=== PATIENT | male | born 1980 | race Caucasian/White ===

== ENCOUNTER 2024-12-08 13:08 | Emergency (ER) | payer OTHER, SELFPAY ==
--- NOTE | ~2024-12-08 | XR_ITS ---
CLINICAL HISTORY: cp Two views of the chest. COMPARISON: None FINDINGS: Normal heart and mediastinal contours. No consolidation. No pleural effusion or pneumothorax. No acute fracture. IMPRESSION: 1. No consolidation. This document has been electronically signed by: Scar Marin MD on 12/08/2024 14:02:25
--- NOTE | 2024-12-08 13:11 | ECG_ITS ---
Test Reason : CP Blood Pressure : */* mmHG Vent. Rate : 110 BPM Atrial Rate : 110 BPM P-R Int : 142 ms QRS Dur : 88 ms QT Int : 342 ms P-R-T Axes : 50 17 44 degrees QTcB Int : 462 ms Sinus tachycardia Otherwise normal ECG No previous ECGs available Referred By: Mechelle Corona Electronically Signed By: RICCARDO ANTOINE MD
--- NOTE | 2024-12-08 13:23 | ED_ITS ---
HPI - Chest Pain General Chief Complaint: Chest Pain Stated Complaint: chest pain Time Seen by Provider: 12/08/24 16:24 History of Present Illness ED Provider: Ayush THOMPSON narrative: The patient is a 44-year-old male who reports a history of drug use in the past including cocaine. He denies any significant past medical history although he says he has not seen a doctor in years. He says that yesterday of the day before he developed pain in his left lower chest. He says the pain is not severe, a 3 or a 4/10. It feels like a knot in his chest he says. It is not worse when he breathes or changes position. He denies any injury or straining or significant exercise recently. He can not think of anything that might have provoked any pain in his chest. He has had no significant cough recently although he reports that he had had a lot of coughing a month ago and was ultimately prescribed azithromycin at an urgent care. His symptoms improved after that. He has had no pain or swelling in his legs. No fever, sweats, chills. No abdominal pain, nausea, vomiting. The pain is not affected by eating. He does not feel short of breath. He has a smoking history. Currently he uses Gwendolyn nicotine pouches. He does not have any family history of early coronary disease as far as he knows. His father by drowning in his 20s. His mother has a lot. Related Data Allergies Allergy/AdvReac Type Severity Reaction Status Date / Time No Known Allergies Allergy Verified 12/08/24 13:25 Review of Systems 2 Review of Systems: Yes all other systems are reviewed and are negative [facility] Social History Social History Smoked in Last 30 Days: No Use of substances other than those prescribed or required for medical reasons: Yes Substance Use Type: Crack/Cocaine Substance Use Frequency: Occasionally Advance Directives: No Advance Directives Information Provided: Yes Physical Exam 2 Vital Signs: Vital Signs: Last Vital Signs Temp 98.5 F 12/08/24 18:00 Pulse 100 12/08/24 18:00 Resp 18 12/08/24 18:00 BP 168/87 H 12/08/24 18:00 Pulse Ox 96 12/08/24 18:00 O2 Del Method Room Air 12/08/24 18:00 BMI result Body Mass Index 31.7 Const: Other: The patient is a robust and muscular looking 44-year-old. He does not appear in acute distress. Orientation/consciousness: patient oriented x3 HEENT: Head: Yes normal to inspection Face and sinus: Yes normal facial exam Mouth: Normal oral and palatal mucosa present and moist mucous membranes Eyes: General: appearance normal, both eyes and all related structures E yelids: Yes eyelids normal Conjunctivae: conjunctivae normal Sclerae: s clerae normal Pupils: Equal, round and reactive pupils present EOM: EOMs intact bilaterally Neck: Neck: Yes normal visual inspection, Yes full ROM and Yes no JVD Chest: Other: The patient indicates an area of pain on the left lower anterior chest wall. This is a few cm lateral to the sternum a few cm above the costal margin and a few cm below the nipple. I do not reproduce the patient's pain with the palpation. No crepitus or subcutaneous emphysema or other abnormality with palpation or inspection. Resp: Effort & Inspection: normal respiratory effort Auscultation: clear to auscultation bilaterally Cardio: Rate: regular rate Rhythm: regular rhythm Heart sounds: S1 normal heart sound present and S2 normal heart sound present GI: Other: The abdomen is soft and nontender. No left upper quadrant tenderness. Skin: Other: The skin is dry and unremarkable. General skin exam: no rashes or lesions noted Neuro: General: patient oriented x3, tone normal, moves all extremities, no focal motor deficits and CN's II-XI intact bilaterally Cranial nerves: Yes Equal, round and reactive pupils present Extrem: Other: No peripheral edema. No calf swelling or tenderness. No asymmetry Course Course Course Narrative: This is a Rapid Medical Exam performed in triage by Mechelle Corona PA-C. Full HPI, ROS and PE to be performed by primary ED provider. 44 yo M presenting to the ED c/o chest pain since last night around 1800 s/p smoking marijuana. Does admit to cocaine use. Denies SOB, N/V, lightheadedness, dizziness PE: NAD, Nontoxic appearing, ambulating w/steady gait Plan: EKG, Labs, CXR, SARs, Tox screen Medical Decision Making Medical Decision Making MDM Narrative: The patient is a 44-year-old male who presents with chest pain that started yesterday. There were no inciting factors. The pain has been fairly constant. It is not pleuritic. He has a history of cocaine use in the past although he is testing negative for cocaine today. He does not think that he has any family history of early coronary disease. He uses Gwendolyn nicotine pouches. The patient does not appear unwell and he does not seem in significant distress or discomfort. EKGs unremarkable. No old EKGs for comparison. Troponins are flat. D-dimer is normal. Chest x-ray is normal. Pain does not seem to be typical chest wall pain. The pain is not reproducible on palpation and does not seem to be worse with movements. It seems to be fairly constant. I do not appreciate any associated gastrointestinal symptoms and there was no abdominal tenderness. My suspicion for a dangerous process at this point given his negative workup is quite low. He will be reassured and discharged. He should get a primary care doctor. he should return if worse. Lab Data 12/08/24 13:38 12/08/24 13:38 Labs: Lab Results 12/08/24 12/08/24 Range/Units 13:38 17:02 WBC 10.3 (4.8-10.8) X10*3/uL RBC 5.58 (4.60-5.80) X10*6/uL Hgb 16.5 (14.0-18.0) g/dl Hct 45.4 (42.0-52.0) % MCV 81.4 (80.0-98.0) fL MCH 29.6 (27.0-33.0) pg MCHC 36.3 H (31.0-36.0) g/dl RDW 12.3 (11.0-16.0) % Plt Count 249 (160-400) X10*3/uL MPV 8.7 L (9.4-12.4) fL Immature Gran % (Auto) 0.4 (0.0-0.4) % Neut % (Auto) 63.2 (45-73) % Lymph % (Auto) 25.5 (20-40) % [place] % (Auto) 8.9 (2-11) % Eos % (Auto) 1.3 (0-4) % Baso % (Auto) 0.7 (0-2) % Lymph # (Auto) 2.6 (1.2-4.9) X10*3/uL [place] # (Auto) 0.9 (0.1-1.2) X10*3/uL Eos # (Auto) 0.1 (0.0-0.4) X10*3/uL Baso # (Auto) 0.1 (0.0-0.2) X10*3/uL Abs Immat Gran (auto) 0.04 H (0.00-0.03) X10*3/uL Absolute Neuts (auto) 6.5 (2.0-8.3) x10*3/uL Absolute Nucleated RBC 0.000 (0.0-0.012) X10*3/uL Nucleated RBC % (auto) 0.0 (0.0-0.2) /100WBC D-Dimer High Sensitivty 167 NG/ML Sodium 138 (135-145) mmol/L Potassium 3.5 (3.3-5.1) mmol/L Chloride 104 (96-108) mmol/L Carbon Dioxide 26 (22-29) mmol/L Anion Gap 12 (12-20) BUN 8 L (9-16) mg/dL Creatinine 0.98 (0.5-1.4) mg/dL Estim Creat Clear Calc 110.6 Estimated GFR > 60 Random Glucose 142 H (60-115) mg/dL Calcium 9.4 (8.4-10.2) mg/dL Magnesium 2.0 (1.6-2.6) mg/dL Total Bilirubin 0.4 (0.0-1.0) mg/dL Direct Bilirubin 0.2 (0.0-0.5) mg/dL AST 31 (5-37) U/L ALT 50 H (0-40) U/L Alkaline Phosphatase 75 (39-117) U/L Troponin I High Sens 3.5 3.9 (<3.5-35.0) ng/L Total Protein 7.6 (6.5-8.0) g/dL Albumin 4.7 (3.5-5.0) g/dL Urine Opiates Screen Not Detected (Not Detect) Ur Buprenorphine Scrn Not Detected (Not Detect) ng/mL Ur Oxycodone Screen Not Detected (Not Detect) ng/mL Urine Methadone Screen Not Detected (Not Detect) ng/mL Urine Fentanyl Screen Not Detected (Not Detect) Ur Barbiturates Screen Not Detected (Not Detect) Ur Phencyclidine Scrn Not Detected (Not Detect) Ur Amphetamines Screen Not Detected (Not Detect) U Benzodiazepines Scrn Not Detected (Not Detect) Urine Cocaine Screen Not Detected (Not Detect) U Marijuana (THC) Screen POSITIVE H (Not Detect) Influenza Type A (PCR) NEGATIVE (Negative) Influenza Type B (PCR) NEGATIVE (Negative) RSV RNA Qual (PCR) NEGATIVE (Negative) SARS-CoV-2 RNA (RT-PCR) NEGATIVE (Negative) Independent Interpretation I performed an independent interpretation of an: EKG Interpretation: EKG at 13:10 shows sinus tachycardia at 110 beats per minute. No previous EKGs available for comparison. No definite other abnormalities. No definite ischemic changes. Discharge Plan Discharge Clinical Impression: Chest pain Patient Disposition: Home, Self-Care Additional Instructions: Your testing is very reassuring today. It is not clear what is causing this pain but it is probably a muscular pain in your chest wall. My hope is this pain will gradually resolve over the next few days. You may use ibuprofen and Tylenol as needed. Most importantly you should work on getting a regular doctor. Please make an effort to get a new primary care provider. You has been given some contact information of local PCP offices. Return to the emergency room if significantly worse. [place]: [facility] [place] [facility]Provider Group] [facility] [place] [facility]an [Provider Group] [facility] [place] [Provider Group] [facility] [place] [facility] [Provider Group] [facility] [place] [Provider Group] Griselda Frye MD [Physician] - Interventions: ED Discharge Assessment Last Done: 12/08/24 18:00 Discharge Date/Time: 12/08/24 18:03 Print Language: Guyanese
[2024-12-08 13:24] VITALS: BP 152/100; PULSE 116; RESP 18; TEMP 36.7; O2SAT 96; BMI 31.7
[2024-12-08 13:43] LABS: MANUAL DIFF FLAG NO
[2024-12-08 13:44] LABS: Basophils Absolute Auto 0.1 X10*3/uL (0.0-0.2); Basophils Percent Auto 0.7 % (0-2); Eosinophils Absolute Auto 0.1 X10*3/uL (0.0-0.4); Eosinophils Percent Auto 1.3 % (0-4); Hematocrit 45.4 % (42.0-52.0); Hemoglobin 16.5 g/dl (14.0-18.0); Imm Gran Abs Auto 0.04 X10*3/uL (0.00-0.03); Imm Gran Pct Auto 0.4 % (0.0-0.4); Lymphocytes Absolute Auto 2.6 X10*3/uL (1.2-4.9); Lymphocytes Percent Auto 25.5 % (20-40); Mean Corpuscular HGB Conc 36.3 g/dl (31.0-36.0); Mean Corpuscular Hemoglobin 29.6 pg (27.0-33.0); Mean Corpuscular Volume 81.4 fL (80.0-98.0); Mean Platelet Volume 8.7 fL (9.4-12.4); Monocytes Absolute Auto 0.9 X10*3/uL (0.1-1.2); Monocytes Percent Auto 8.9 % (2-11); Neutrophils Absolute Auto 6.5 x10*3/uL (2.0-8.3); Neutrophils Percent Auto 63.2 % (45-73); Platelet Count 249 X10*3/uL (160-400); Red Blood Count 5.58 X10*6/uL (4.60-5.80); Red Cell Distribution Width 12.3 % (11.0-16.0); White Blood Count 10.3 X10*3/uL (4.8-10.8)
[2024-12-08 13:54] LABS: Amphetamine Screen Urine Not Detected (Not Detect); Barbiturates, Urine Not Detected (Not Detect); Benzodiazepines Screen Urine Not Detected (Not Detect); Buprenorphine Scr Not Detected (Not Detect); Cannabinoid Screen Urine POSITIVE (Not Detect); Cocaine Screen Urine Not Detected (Not Detect); Fentanyl, urine Not Detected (Not Detect); Methadone Screen, Urine Not Detected (Not Detect); Opiate Screen Urine Not Detected (Not Detect); Oxycodone Screen Urine Not Detected (Not Detect); Phencyclidine Screen Urine Not Detected (Not Detect)
[2024-12-08 13:57] LABS: Alanine Aminotransferase 50 U/L (0-40); Albumin Level 4.7 g/dL (3.5-5.0); Alkaline Phosphatase 75 U/L (39-117); Anion Gap 12 (12-20); Aspartate Amino Transferase 31 U/L (5-37); Bilirubin Direct 0.2 mg/dL (0.0-0.5); Bilirubin Total 0.4 mg/dL (0.0-1.0); Blood Urea Nitrogen 8 mg/dL (9-16); Calcium 9.4 mg/dL (8.4-10.2); Carbon Dioxide 26 mmol/L (22-29); Chloride 104 mmol/L (96-108); Creatinine Clr Calc Pharmacy 110.6; Estimated Glomerular Filt Rate > 60; Glucose Random 142 mg/dL (60-115); Potassium 3.5 mmol/L (3.3-5.1); Sodium 138 mmol/L (135-145); Total Protein 7.6 g/dL (6.5-8.0)
[2024-12-08 14:04] LABS: Troponin-I High Sensitivity 3.5 ng/L (<3.5-35.0)
[2024-12-08 14:20] LABS: Influenza A PCR NEGATIVE (Negative); Influenza B PCR NEGATIVE (Negative); Resp Syncy Virus RNA Qual PCR NEGATIVE (Negative); SARS COV2 PCR INHOUSE NEGATIVE (Negative)
[2024-12-08 16:53] VITALS: BP 168/87; PULSE 100; RESP 18; O2SAT 96
[2024-12-08 17:06] VITALS: PULSE 92
[2024-12-08 17:29] LABS: Troponin-I High Sensitivity 3.9 ng/L (<3.5-35.0)
[2024-12-08 17:31] LABS: D Dimer High Sensitivity 167 NG/ML
[2024-12-08 18:00] VITALS: BP 168/87; PULSE 100; RESP 18; TEMP 36.9; O2SAT 96
== END 2024-12-08 18:03 | disposition home or self-care (01) ==
PROVIDERS: Physician Assistant; Emergency Provider Emergency Medicine
DX: R07.9 Chest pain, unspecified (principal); R00.0 Tachycardia, unspecified; Z03.818 Encounter for observation for suspected exposure to other biological agents ruled out; R05.9 Cough, unspecified; F12.90 Cannabis use, unspecified, uncomplicated
CPT/HCPCS: 0241U; 36415; 71046; 80048; 80076; 80307; 83735; 84484; 85025; 85379; 93005; 99284; 99285

== ENCOUNTER → 2024-12-08 13:11 | Outpatient (BNV) | payer OTHER, SELFPAY | PROVIDERS: Emergency Provider Emergency Medicine; Visit Provider Internal Medicine Cardiovascular Disease | DX: R00.0 Tachycardia, unspecified (principal) | CPT/HCPCS: 93010 ==

== ENCOUNTER → 2024-12-08 13:26 | Outpatient (BNV) | payer OTHER, SELFPAY | PROVIDERS: Visit Provider Radiology Diagnostic Radiology | DX: R07.9 Chest pain, unspecified (principal) | CPT/HCPCS: 71046 ==